=== PATIENT | male | born 1960 | race Caucasian/White ===

== ENCOUNTER 2020-08-13 16:53 | Outpatient (CLI) | payer OTHER, SELFPAY ==
[2020-08-13 17:05] LABS: Basophils Absolute Auto 0.03 K/mm3 (0.00-0.10); Basophils Percent Auto 0.4 % (0.0-1.0); Eosinophils Absolute Auto 0.34 K/mm3 (0.02-0.50); Eosinophils Percent Auto 4.3 % (1.0-6.0); Hematocrit 41.8 % (40.0-54.0); Hemoglobin 13.8 g/dL (14.0-18.0); Immature Granulocyte Absolute 0.02 K/mm3 (0.00-0.00); Immature Granulocyte Percent A 0.3 % (0.0-0.0); Lymphocytes Absolute Auto 1.71 K/mm3 (1.10-4.50); Lymphocytes Percent Auto 21.7 % (18.0-42.0); Mean Corpuscular Hemoglobin 29.9 pg (27.0-31.0); Mean Corpuscular Volume 90.5 fL (78.0-102.0); Mean Platelet Volume 9.2 fl (8.7-11.0); Monocytes Percent Auto 10.2 % (2.0-11.0); Neutrophils Percent Auto 63.1 % (50.0-70.0); Platelet Count Result 266 K/mm3 (150-420); Red Blood Count 4.62 M/mm3 (4.70-6.10); Red Cell Distribution Width 12.3 % (11.6-14.4); White Blood Count 7.9 K/mm3 (4.8-10.8)
[2020-08-13 17:24] LABS: Alanine Aminotransferase 24 U/L (16-63); Alkaline Phosphatase 59 U/L (46-116); Anion Gap 9 mmol/L (8-16); Aspartate Amino Transferase 18 U/L (15-37); Bilirubin,Total 0.6 mg/dL (0.00-1.00); Blood Urea Nitrogen 19 mg/dL (7-18); Calcium 8.9 mg/dL (8.5-10.1); Carbon Dioxide 26 mmol/L (21-32); Chloride 101 mmol/L (98-108); Estimated Glomerular Filt Rate > 60; Glucose 92 mg/dL (70-99); Osmolality Calculated 284 mOsm/kg (285-295); Potassium 3.8 mmol/L (3.5-5.1); Sodium 136 mmol/L (136-145); Total Protein 8.3 g/dL (6.4-8.2)
== END 2020-08-13 16:54 | disposition home or self-care (01) ==
LOC: CHSLAB 16:55
PROVIDERS: PCP Family Medicine; Visit Provider Family Medicine
DX: M79.605 Pain in left leg (principal)
CPT/HCPCS: 36415; 80053; 85025; 85380

== ENCOUNTER 2020-08-15 12:29 | Outpatient (CLI) | payer OTHER, SELFPAY ==
[2020-08-16 14:03] LABS: SARS-CoV-2 RNA PCR Negative
== END 2020-08-15 12:30 | disposition home or self-care (01) ==
LOC: CHSLAB 12:30
PROVIDERS: PCP Family Medicine; Visit Provider Family Medicine
DX: Z20.828 Contact with and (suspected) exposure to other viral communicable diseases (principal)
CPT/HCPCS: 87635; C9803; U0003

== ENCOUNTER 2025-08-22 10:24 | Outpatient (CLI) | payer BC, SELFPAY ==
--- NOTE | ~2025-08-22 | CT_ITS ---
EXAMINATION: CT sinus wo con COMPARISON: None HISTORY: Chronic sinusitis TECHNIQUE: Axial images were obtained without IV contrast. Sagittal, coronal reconstruction images were obtained from the axial views. CT scan performed using dose optimization techniques including the following automated exposure control; adjustment of mA and/or kV; use of iterative reconstruction technique. Automatic exposure control was used to reduce radiation dose. Permanent radiation dose record is archived to PACS. FINDINGS: The visualized brain parenchyma orbits and soft tissues appear unremarkable. Minimal mucosal thickening in the frontal and ethmoidal sinuses. Minimal mucosal thickening in the maxillary sinuses. The ostiomeatal complexes are patent. The nasal septum is in the midline. No significant thickening of the turbinates on either the nasal cavities. The sphenoid sinuses appear unremarkable. There is no osseous destruction or wall thickening identified. IMPRESSION: Minimal sinusitis. Reviewed, dictated and finalized at location [facility] IMPRESSION: Minimal sinusitis.
== END 2025-08-22 10:25 | disposition home or self-care (01) ==
LOC: MICIMG 10:26
PROVIDERS: PCP Otolaryngology; Visit Provider Otolaryngology
DX: J32.9 Chronic sinusitis, unspecified (principal)
CPT/HCPCS: 70486